=== PATIENT | female | born 1960 | race Caucasian/White ===

== ENCOUNTER → 2016-08-16 | Outpatient (CLI) | payer OTHER ==
[2013-09-11 23:40] VITALS: BP 106/78
[~2016-08-16] MED LIST: ZOLPIDEM 5 MG TABLET. PO ONE
--- NOTE | 2016-08-17 17:22 | SLEEP ---
DATE OF STUDY: 08/16/2016 ATTENDING PHYSICIAN: Dr. Eligio Elise. The patient is 55 years old, who weighs 260 pounds with a BMI of 44. The patient underwent split night study at [facility]. During the night study, the patient spent 471 minutes in bed and slept for 264 minutes with low sleep efficiency of 56%. Sleep latency was prolonged at 126 minutes with a REM latency of 313 minutes. Overall, sleep architecture showed increased stage 1 sleep, normal stage 2 sleep, normal slow wave and slightly reduced REM sleep. During the initial diagnostic portion of the study, the patient slept for 142 minutes. During this time, there were 72 obstructive apneas, 1 mixed apnea, and no central apneas. There were 87 hypopneas. The patient's apnea hypopnea index was 68 per hour, supine index 68 per hour, and REM sleep was not seen during the diagnostic portion. EKG monitoring revealed normal sinus rhythm, average heart rate was 91 beats per minute, no sustained arrhythmias were observed. PLMS were not seen. Nocturnal oximetry study revealed a mean oxygen saturation of 96% with the lowest of 78%. 32% of time oxygen saturation remained between 80% and 89%. The patient met the criteria for CPAP initiation. It was started at 5 cm of water and titrated up to 18 cm of water. At the final pressure, the patient slept for 39 minutes. The patient had supine sleep as well as long REM period was observed. AHI was reduced to 9 per hour. Oxygen saturations remained above 88%. I would recommend that patient should be placed on CPAP at 20 cm of water. The patient used a small size full-face mask. IMPRESSION: 1. Severe sleep apnea-hypopnea syndrome at an apnea-hypopnea index of 68 per hour. 2. Nocturnal hypoxia secondary to obstructive sleep apnea, but resolved with CPAP. 3. No clinically significant periodic limb movements during sleep. RECOMMENDATIONS: 1. CPAP at 20 cm of water should be used on a nightly basis. The patient used a small size full-face mask. 2. Follow up in 4-6 weeks to assess compliance with CPAP and to document clinical improvement. 3. Weight loss is strongly advised. 4. Avoid DYE MIXER depressants. 5. Caution regarding driving until symptoms of sleep apnea resolve with the use of CPAP. QUIQUE URRUTIA MD DR: HERMILO/jacqueline JOB#: [id number] / [id number] ELIGIO Dunn MD MTDD
== END | disposition home or self-care (01) ==
LOC: RT 18:49
PROVIDERS: ATTEND Family Medicine
DX: R53.83 Other fatigue (principal); Q79.6 Ehlers-Danlos syndromes; G47.33 Obstructive sleep apnea (adult) (pediatric)
CPT/HCPCS: 95810

== ENCOUNTER → 2017-06-09 | Outpatient (CLI) | payer OTHER ==
[2017-06-09] MEDS: IOHEXOL 300 MG/ML 100ML VIAL. IV (08:15)
== END | disposition home or self-care (01) ==
LOC: CT 08:05
DX: I26.99 Other pulmonary embolism without acute cor pulmonale (principal); I51.7 Cardiomegaly; R55 Syncope and collapse
CPT/HCPCS: 71275; Q9967

== ENCOUNTER → 2017-08-01 | Outpatient (CLI) | payer OTHER | END | disposition home or self-care (01) | LOC: PF 09:27 | DX: J45.998 Other asthma (principal) | CPT/HCPCS: 94010 ==

== ENCOUNTER 2018-01-05 07:07 | Emergency (ER) | payer OTHER ==
[~2018-01-05] VITALS: Ht 167.6 cm; Wt 129.7 kg
[2018-01-05 07:29] VITALS: BP 145/72
--- NOTE | 2018-01-05 07:41 | PHYS DOC ---
Past Medical History Past Medical History: High Cholesterol, Hypothyroid, Other Additional Past Medical Histor: neuropathy Past Surgical History: Cholecystectomy Additional Past Surgical Histo: tubal x 2 Alcohol Use: None Drug Use: None Adult General Chief Complaint Chief Complaint: LOWER EXT PAIN HPI HPI This is a pleasant 57-year-old female who presents emergency department today with right knee pain after injuring it approximately a week ago. She describes the pain as a sharp shooting pain that is nonradiating intermittent and worse when she walks. She is able to ambulate with a cane. She denies numbness weakness or tingling. Review of systems is negative for hip pain falls abdominal pain head injury. All other review of systems is negative unless otherwise noted in history of present illness. ED course: 57-year-old female presenting the emergency department today with right knee pain. She was given acetaminophen. X-ray ordered. Ultrasound ordered. X-rays and ultrasound unremarkable. We will discharge patient home to follow-up with orthopedic surgery for her knee pain and reexamination in 2-3 days.The patient has been examined and was not found to have an emergency medical condition. The patient was then discharged home in stable condition to follow up with their primary care physician over the next 2-3 days. They were to return if their symptoms worsened or if they were concerned for any reason. They were also instructed to return to the emergency department if they were unable to get the recommended and appropriate follow-up. [id number] discharge instructions and return precautions were given. Patient's questions were answered to their satisfaction. Patient is comfortable with plan. Review of Systems Review of Systems SEE ABOVE. Current Medications Current Medications Current Medications Medications (Trade) Dose Ordered Sig/[facility] Start Time Stop Time Status Last Admin Dose Admin Acetaminophen (Tylenol) 1,000 mg 1X ONCE 01/05/18 07:45 01/05/18 07:46 DC 01/05/18 08:14 1,000 MG Morphine Sulfate (Morphine Ir) 15 mg 1X ONCE 01/05/18 08:00 01/05/18 08:01 DC 01/05/18 08:14 15 MG Allergies Allergies Allergies Coded Allergies Type Severity Reaction Last Updated Verified No Known Drug Allergies 09/11/13 No Physical Exam Physical Exam SEE ABOVE Constitutional: Well developed, well nourished, no acute distress, non-toxic appearance. [] HENT: Normocephalic, atraumatic, bilateral external ears normal, oropharynx moist, no oral exudates, nose normal. Eyes: PERRLA, EOMI, conjunctiva normal, no discharge. [] Neck: Normal range of motion, no tenderness, supple, no stridor. Cardiovascular:Heart rate regular rhythm, no murmur Lungs & Thorax: Bilateral breath sounds clear to auscultation [] Abdomen: Bowel sounds normal, soft, no tenderness, no masses, no pulsatile masses. Skin: Warm, dry, no erythema, no rash. [] Back: No tenderness, no CVA tenderness. [] Extremities: On examination the patient's right knee the patient has pain with passive range of motion. The knee joint is stable. Negative Cruz's test. Normal Jese's test. Normal anterior and posterior drawer test. Distally the patient is neurovascularly intact with palpable pulse 2 second cap refill and normal motor and sensory function of the foot. The remainder the extremities are nontender with normal range of motion and neurovascularly intact. The patient's right and left hip has no pain with passive range of motion. Neurologic: Alert and oriented X 3, normal motor function, normal sensory function, no focal deficits noted. [] Psychologic: Affect normal, judgement normal, mood normal. Current Patient Data Vital Signs Vital Signs Date Time Temp Pulse Resp B/P (MAP) Pulse Ox O2 Delivery O2 Flow Rate FiO2 01/05/18 08:14 16 96 01/05/18 07:29 97.9 82 145/72 (96) Room Air 97.9 EKG EKG [] Radiology/Procedures Radiology/Procedures [] Course & Med Decision Making Course & Med Decision Making Pertinent Labs and Imaging studies reviewed. (See chart for details) [] Dragon Disclaimer Dragon Disclaimer This electronic medical record was generated, in whole or in part, using a voice recognition dictation system. Departure Departure Impression: Primary Impression: Knee pain, right Disposition: 01 HOME, SELF-CARE Condition: STABLE Referrals: BERTA VALVERDE MD (PCP) Patient Instructions: Knee Pain, [id number] Additional Instructions: Thank you for allowing us to participate in your care today. Return to the emergency department you have any new or worsening symptoms, or if you are concerned for any reason. Return to emergency department if you have any new or concerning symptoms including but not limited to fever, chills, nausea, vomiting, intractable pain, any new rashes, chest pain, shortness of air , uncontrolled bleeding, difficulty breathing, and/or vision loss. Follow up with your primary care physician within 3 days. Call your Primary Doctor tomorrow and inform them of your visit today. If you do not have a primary care provider we are happy to provide you with a list of our primary care providers contact information. This condition should be evaluated by your primary care physician and any recommended consulting services for continued management within 2-3 days after discharge. If at any time, you are having difficulty getting into your primary care doctor or a specialist, return to the emergency department. You may have been prescribed medication or given medication in the emergency department that can change in your level of thinking and ability to operate machinery. Many prescribed medications can cause this. Some commonly prescribed medications include hydrocodone, ativan, and benadryl. Be sure to check with your pharmacist and ask if the medications you've prescribed can affect your level of consciousness. I recommend not operating heavy machinery or driving while on medication such as these. Scripts Morphine Sulfate (MORPHINE SULFATE) 15 Mg Tablet 1 TAB PO PRN Q12HRS PRN for SEVERE PAIN, #6 TAB 0 Refills Prov: SHERRILL STEVE MD 01/05/18 SHERRILL STEVE MD Jan 05, 2018 07:41
[2018-01-05] MEDS ORDERED: ACETAMINOPHEN 500 MG TABLET PO ONE (07:45)
[2018-01-05] MEDS ORDERED: MORPHINE IR 15 MG TABLET PO ONE (08:00)
--- NOTE | 2018-01-05 08:09 | RAD ---
Right knee, 3 views, 01/05/2018: HISTORY: Pain, injury There is mild spurring at the knee joint and at the patellofemoral articulation. No recent fracture or dislocation is identified. No large joint effusion is seen. IMPRESSION: 1. Mild degenerative change. 2. No acute bony abnormality is detected. Electronically signed by: Dao Sun MD (01/05/2018 8:06 AM) [facility]
--- NOTE | 2018-01-05 08:30 | RAD ---
Examination: Lower Extremity Venous Doppler Ultrasound History: Right knee pain Comparison: None Procedure: Medina scale, color flow 2D and spectal waveform analysis images are obtained with and without compression in the area of the common femoral vein, superficial femoral vein - femoral vein junction, main femoral vein (superficial femoral vein) and popliteal vein. Veins of the proximal calf are also imaged. Findings: There is normal duplex flow, color flow and compressibility of all visualized vein segments. No evidence of deep venous thrombus is present. Impression: No evidence of DVT in the visualized right lower extremity venous system. Electronically signed by: Hardeep Mccollum MD (01/05/2018 8:27 AM) [id number]
[2018-01-05] MEDS ORDERED: MORP15TA PO (08:35)
== END 2018-01-05 08:46 | disposition home or self-care (01) ==
LOC: ER 07:07
DX: M25.561 Pain in right knee (principal); E78.00 Pure hypercholesterolemia, unspecified; E03.9 Hypothyroidism, unspecified; Z90.49 Acquired absence of other specified parts of digestive tract
CPT/HCPCS: 73562; 93971; 99284

== ENCOUNTER → 2019-03-27 | Outpatient (CLI) | payer OTHER ==
[~2019-03-27] MED LIST changes: +MORP15TA PO; -ZOLPIDEM 5 MG TABLET. PO ONE
--- NOTE | 2019-03-27 16:58 | RAD ---
EXAM: Chest, 2 views. HISTORY: Shortness of breath. COMPARISON: 06/09/2017 FINDINGS: 2 views of the chest are obtained. There is no infiltrate, pleural effusion or pneumothorax. The heart is normal in size. IMPRESSION: No acute pulmonary finding. Electronically signed by: Melita Acevedo MD (03/27/2019 4:55 PM) [place] [id number]
== END | disposition home or self-care (01) ==
LOC: RAD 12:10
PROVIDERS: ATTEND Internal Medicine Pulmonary Disease
DX: J44.9 Chronic obstructive pulmonary disease, unspecified (principal)
CPT/HCPCS: 71046